=== PATIENT | male | born 1955 | race Caucasian/White ===

== ENCOUNTER 2020-06-14 08:00 | Outpatient (CLI) | payer MEDICARE | END 2020-06-14 23:59 | disposition home or self-care (01) | LOC: STAR 08:00 | PROVIDERS: ATTEND Surgery | DX: Z01.818 Encounter for other preprocedural examination (principal); U07.1 COVID-19; K42.9 Umbilical hernia without obstruction or gangrene | CPT/HCPCS: 36415; 87635 ==

== ENCOUNTER → 2020-07-12 | Outpatient (CLI) | payer MEDICARE ==
[~2020-07-12] MED LIST: ATOR40TA78 PO; LOSA25TA25 PO
== END | disposition home or self-care (01) ==
LOC: STAR 07:47
PROVIDERS: ATTEND Anesthesiology
DX: Z01.812 Encounter for preprocedural laboratory examination (principal); Z20.828 Contact with and (suspected) exposure to other viral communicable diseases
CPT/HCPCS: 36415; 87635

== ENCOUNTER 2020-07-16 08:07 | Day surgery (SDC) | payer MEDICARE ==
[~2020-07-16] VITALS: Ht 172.7 cm; Wt 86.4 kg
[2020-07-16] MEDS ORDERED: LACTATED RINGERS 1,000 ML IV SCH (08:57)
[2020-07-16] MEDS ORDERED: CHLORHEXIDINE 15 ML UDC MM ONE (09:00)
[2020-07-16] MEDS ORDERED: ATOR40TA78 PO (09:15)
[2020-07-16] MEDS ORDERED: LOSA25TA25 PO (09:15)
[2020-07-16 09:19] VITALS: BP 148/92
[2020-07-16] MEDS ORDERED: PLEASE ENTER ALLERGIES MC SCH (09:30)
[2020-07-16] MEDS ORDERED: PLEASE ENTER HEIGHT AND WEIGHT MC SCH (09:30)
[2020-07-16 09:59] LABS: ALANINE AMINOTRANSFERASE 30 U/L (12-78); ALBUMIN 3.7 g/dL (3.4-5.0); ANION GAP 6 mmol/L (5-15); CALCIUM 8.7 mg/dL (8.5-10.1); CHLORIDE 109 mmol/L (98-107)
[2020-07-16] MEDS ORDERED: MIDAZOLAM 1 MG/ML, 2ML ONE (10:00)
[2020-07-16] MEDS ORDERED: LABETALOL 5MG/ML, 20ML IV PRN (10:00)
[2020-07-16] MEDS ORDERED: hydrALAzine 20 MG/ML, 1ML IV PRN (10:00)
[2020-07-16] MEDS ORDERED: FENTANYL PF 250 MCG/5ML ONE (10:00)
[2020-07-16] MEDS ORDERED: PROMETHAZINE 25 MG/ML, 1ML IVPush PRN (10:00)
[2020-07-16] MEDS ORDERED: OXYcodone 5 MG/5 ML ORAL.SOL UDC PO PRN (10:00)
[2020-07-16] MEDS ORDERED: DIPHENHYDRAMINE 50 MG/ML, 1ML IVPush PRN (10:00)
[2020-07-16] MEDS ORDERED: HALOPERIDOL 5 MG/ML IV PRN (10:00)
[2020-07-16] MEDS ORDERED: HYDROmorphone 1 MG/ML, 1ML INJ IVPush PRN (10:00)
[2020-07-16] MEDS ORDERED: MEPERIDINE/PF 25MG/0.5ML IVPush PRN (10:00)
[2020-07-16 10:01] LABS: ALKALINE PHOSPHATASE 113 U/L (45-117); TOTAL PROTEIN 7.1 g/dL (6.4-8.2)
[2020-07-16] MEDS ORDERED: ONDANSETRON 2MG/ML, 2ML ONE (11:51)
[2020-07-16] MEDS ORDERED: ROCURONIUM 10MG/ML,5ML ONE (11:51)
[2020-07-16] MEDS ORDERED: PROPOFOL 10 MG/ML, 20ML ONE (11:51)
[2020-07-16] MEDS ORDERED: GLYCOPYRROLATE 0.2MG/1ML, 5ML ONE (11:51)
[2020-07-16] MEDS ORDERED: NEOSTIGMINE 1 MG/ML, 10ML ONE (11:51)
[2020-07-16] MEDS ORDERED: SUCCINYLCHOLINE 20 MG/ML, 10ML ONE (11:51)
[2020-07-16] MEDS ORDERED: CEFAZOLIN 1,000 MG ONE (11:51)
[2020-07-16] MEDS ORDERED: KETOROLAC 30 MG/1 ML ONE ×2 (11:51→12:15)
[2020-07-16] MEDS ORDERED: DEXAMETHASONE 4 MG/ML, 1ML ONE (11:51)
[2020-07-16] MEDS ORDERED: LIDOCAINE GEL 2%, 5ML ONE (11:54)
[2020-07-16] MEDS ORDERED: OXYcodone 5 MG/5 ML ORAL.SOL UDC ONE (12:15)
[2020-07-16] MEDS ORDERED: FENTANYL PF 100 MCG/2ML ONE ×2 (12:15→12:29)
[2020-07-16] MEDS: FENTANYL PF 100 MCG/2ML IV PRN ×3 (12:18→12:33)
[2020-07-16] MEDS ORDERED: HYDROmorphone 1 MG/ML, 1ML INJ ONE (12:29)
[2020-07-16] MEDS ORDERED: KETOROLAC 30 MG/1 ML IVPush PRN (12:30)
[2020-07-16] MEDS ORDERED: HYDROcodone/APAP 5/325 TABLET PO PRN (12:30)
[2020-07-16] MEDS ORDERED: ONDANSETRON 2MG/ML, 2ML IVPush PRN (12:30)
[2020-07-16] MEDS ORDERED: morphine SULFATE 10 MG/ML, 1ML IVPush PRN (12:30)
== END 2020-07-16 16:20 | disposition home or self-care (01) ==
LOC: OUT 08:07
PROVIDERS: ATTEND Surgery
DX: K42.0 Umbilical hernia with obstruction, without gangrene (principal); K40.30 Unilateral inguinal hernia, with obstruction, without gangrene, not specified as recurrent; I10 Essential (primary) hypertension; E78.5 Hyperlipidemia, unspecified; Z79.899 Other long term (current) drug therapy; Z83.3 Family history of diabetes mellitus; Z80.9 Family history of malignant neoplasm, unspecified
CPT/HCPCS: 36415; 49650; 49653; 80053; 93005; C1781; J0171; J0330; J0690; J1100; J1170; J2250; J2405; J2704; J2710; J3010; J7120; J1885